=== PATIENT | male | born 1965 | race Caucasian/White ===

== ENCOUNTER 2018-04-25 10:44 | Observation (INO) | payer OTHER ==
[2018-04-25] MEDS: morphine 4 MG/ML VIAL IV ×4 (11:56→22:49)
[2018-04-25] MEDS: ONDANSETRON 4 MG INJ IV (11:56)
[2018-04-25 11:59] LABS: ADD MAN DIFF? NO
[2018-04-25 12:00] LABS: BASOPHIL # 0.1 10^3/ul (0.0-0.1); BASOPHILS % 0.4 % (0.0-2.0); EOSINOPHILS % 0.1 % (0.0-7.0); HEMATOCRIT 45.2 % (42.0-52.0); HEMOGLOBIN 15.8 g/dl (14.0-18.0); LYMPHOCYTES % 8.2 % (15.0-51.0); MEAN CORPUSCULAR HEMOGLOBIN 31.9 pg (29.0-33.0); MEAN CORPUSCULAR VOLUME 91.3 fl (82.0-101.0); MEAN PLATELET VOLUME 9.1 fl (7.4-10.4); MONOCYTE # 0.8 10^3/ul (0.3-0.9); MONOCYTES % 6.7 % (0.0-11.0); NEUTROPHIL # 10.7 10^3/ul (1.6-7.5); NEUTROPHILS % 84.4 % (39.0-77.0); PLATELET COUNT 240 10^3/UL (140-415); RED BLOOD COUNT 4.95 10^6/ul (4.70-6.10); RED CELL DISTRIBUTION WIDTH 12.4 % (11.5-14.5)
[2018-04-25 12:00] LABS: WHITE BLOOD COUNT 12.6 10^3/ul (4.8-10.8)
[2018-04-25 12:10] LABS: ADD UMIC YES; UR ASCORBIC ACID NEGATIVE (NEGATIVE); UR BACTERIA FEW /HPF (NONE SEEN); UR BILIRUBIN (Dip) NEGATIVE (NEGATIVE); UR BLOOD (Dip) 1+ mg/dL (NEGATIVE); UR CLARITY CLEAR (CLEAR); UR COLOR YELLOW (YELLOW); UR GLUCOSE (Dip) NEGATIVE (NEGATIVE); UR KETONES (Dip) 2+ mg/dL (NEGATIVE); UR LEUKOCYTE ESTERASE (Dip) NEGATIVE Leu/ul (NEGATIVE); UR MUCUS FEW /HPF (NONE SEEN); UR NITRITE (Dip) NEGATIVE (NEGATIVE); UR RBC 2 /HPF (0-5); UR SPECIFIC GRAVITY (Dip) 1.021 (1.003-1.030); UR TOTAL PROTEIN (Dip) 1+ mg/dl (NEGATIVE); UR UROBILINOGEN (Dip) NEGATIVE (NEGATIVE); UR WBC 1 /HPF (0-5)
[2018-04-25 12:19] LABS: PARTIAL THROMBOPLASTIN TIME 27.1 Sec (23.0-35.0); PROTIME 13.3 Sec (11.9-14.9)
[2018-04-25 12:21] LABS: ANION GAP 21 (5-13); BLOOD UREA NITROGEN 13 mg/dl (7-20); CALCIUM 9.4 mg/dl (8.4-10.2); CARBON DIOXIDE 24 mmol/L (21-31); CHLORIDE 96 mmol/L (97-110); CREATININE 0.77 mg/dl (0.61-1.24); Estimated GFR > 60 mL/min (>60); GLUCOSE 106 mg/dl (70-220); SODIUM 141 mmol/L (135-144)
[2018-04-25] MEDS ORDERED: ACETAMINOPHEN 325 MG TAB PO (12:30)
[2018-04-25] MEDS ORDERED: ONDANSETRON 4 MG INJ IV (12:30)
[2018-04-25 12:32] LABS: TROPONIN-I < 0.012 ng/ml (0.000-0.120)
[2018-04-25] MEDS ORDERED: GLUCAGON 1 MG INJ IM (14:30)
[2018-04-25] MEDS ORDERED: GLUCOSE GEL 15 GRAM TUBE BUCCAL (14:30)
[2018-04-25] MEDS ORDERED: DEXTROSE 50% 50 ML SYRINGE IV ×2 (14:30)
[2018-04-25] MEDS ORDERED: GLUCOSE GEL 15 GRAM TUBE PO ×2 (14:30)
[2018-04-25 16:24] LABS: SICKLE CELL SCREEN NEGATIVE (NEGATIVE)
[2018-04-25] MEDS: ACCU-CHEK XX ×2 (17:40→20:47)
[2018-04-25] MEDS: INSULIN ASPART [NOVOLOG] 3 ML PEN SC ×2 (17:43→20:37)
[2018-04-25] MEDS: metFORMIN 500 MG TAB PO (17:43)
[2018-04-25 18:04] LABS: AMPHETAMINE/METHAMPHETAMINE Negative (NEGATIVE); BARBITURATES Negative (NEGATIVE); BENZODIAZEPINES Negative (NEGATIVE); CANNABINOIDS Negative (NEGATIVE); COCAINE Negative (NEGATIVE)
[2018-04-25 18:29] LABS: OPIATES Positive (NEGATIVE)
[2018-04-26] MEDS: morphine 4 MG/ML VIAL IV ×2 (05:41→11:08)
[2018-04-26] MEDS: INSULIN ASPART [NOVOLOG] 3 ML PEN SC ×2 (07:50→13:00)
[2018-04-26] MEDS: ACCU-CHEK XX ×2 (08:30→13:00)
[2018-04-26] MEDS: ALLOPURINOL 100 MG TAB PO (08:40)
[2018-04-26] MEDS: metFORMIN 500 MG TAB PO (08:40)
[2018-04-26] MEDS: BENAZEPRIL 40 MG TAB PO (08:41)
[2018-04-26 11:56] LABS: HEMOGLOBIN A1C 5.3 % (0-5.9)
== END 2018-04-26 18:00 | disposition home or self-care (01) ==
LOC: E/R 10:44 → MS1 12:16
DX: N48.39 Other priapism (principal); E11.9 Type 2 diabetes mellitus without complications; R03.0 Elevated blood-pressure reading, without diagnosis of hypertension; M1A.9XX0 Chronic gout, unspecified, without tophus (tophi); Z79.4 Long term (current) use of insulin
CPT/HCPCS: 36415; 80048; 80307; 81001; 82962; 83036; 84484; 85025; 85610; 85660; 85730; 87086; 93005; 96374; 96375; 96376; 99285-25; G0378

== ENCOUNTER 2018-04-29 07:08 | Inpatient (IN) | payer OTHER ==
[2018-04-29] MEDS: morphine 4 MG/ML VIAL IV (07:36)
[2018-04-29] MEDS: ONDANSETRON 4 MG INJ IV (07:36)
[2018-04-29 07:37] LABS: ADD MAN DIFF? NO
[2018-04-29 07:41] LABS: BASOPHIL # 0.1 10^3/ul (0.0-0.1); BASOPHILS % 0.6 % (0.0-2.0); EOSINOPHILS # 0.2 10^3/ul (0.0-0.5); EOSINOPHILS % 1.8 % (0.0-7.0); HEMATOCRIT 45.5 % (42.0-52.0); HEMOGLOBIN 15.4 g/dl (14.0-18.0); LYMPHOCYTES # 1.9 10^3/ul (0.8-2.9); LYMPHOCYTES % 19.3 % (15.0-51.0); MEAN CORPUSCULAR HEMOGLOBIN 31.8 pg (29.0-33.0); MEAN CORPUSCULAR HGB CONC 33.8 g/dl (32.0-37.0); MEAN CORPUSCULAR VOLUME 93.8 fl (82.0-101.0); MEAN PLATELET VOLUME 9.4 fl (7.4-10.4); MONOCYTE # 1.1 10^3/ul (0.3-0.9); MONOCYTES % 10.9 % (0.0-11.0); NEUTROPHIL # 6.5 10^3/ul (1.6-7.5); PLATELET COUNT 218 10^3/UL (140-415); RED BLOOD COUNT 4.85 10^6/ul (4.70-6.10); RED CELL DISTRIBUTION WIDTH 12.3 % (11.5-14.5)
[2018-04-29 07:41] LABS: WHITE BLOOD COUNT 9.7 10^3/ul (4.8-10.8)
[2018-04-29 07:58] LABS: ANION GAP 5 (5-13); BLOOD UREA NITROGEN 11 mg/dl (7-20); CALCIUM 9.5 mg/dl (8.4-10.2); CARBON DIOXIDE 31 mmol/L (21-31); CHLORIDE 106 mmol/L (97-110); CREATININE 0.88 mg/dl (0.61-1.24); Estimated GFR > 60 mL/min (>60); GLUCOSE 170 mg/dl (70-220); POTASSIUM 4.2 mmol/L (3.5-5.1); SODIUM 142 mmol/L (135-144)
[2018-04-29 08:00] LABS: INR 0.95; PROTIME 12.8 Sec (11.9-14.9)
[2018-04-29 08:01] LABS: PARTIAL THROMBOPLASTIN TIME 28.8 Sec (23.0-35.0)
[2018-04-29] MEDS ORDERED: LIDOCAINE 1% (MDV) 20 ML INJ (08:20)
[2018-04-29] MEDS ORDERED: HYDROmorphONE 1 MG/ML SYG (08:22)
[2018-04-29] MEDS: HYDROmorphONE 2 MG/ML SYG IV (08:24)
[2018-04-29] MEDS: PHENYLephrine 40 MG in DEXTROSE 5% 246 ML IV (08:34)
[2018-04-29] MEDS: LIDOCAINE 1% (MPF) 30 ML INJ INJ (08:35)
[2018-04-29] MEDS ORDERED: CEFTRIAXONE 1 GM/50 ML (PMX) 50 ML IVPB (08:49)
[2018-04-29] MEDS: CEFTRIAXONE 1 GM/50 ML (PMX) 50 ML IVPB (09:05)
[2018-04-29] MEDS ORDERED: ACETAMINOPHEN 325 MG TAB PO (09:30)
[2018-04-29] MEDS ORDERED: ONDANSETRON 4 MG INJ IV (09:30)
[2018-04-29] MEDS: ACCU-CHEK XX ×3 (11:30→21:02)
[2018-04-29] MEDS ORDERED: GLUCAGON 1 MG INJ IM (11:30)
[2018-04-29] MEDS ORDERED: GLUCOSE GEL 15 GRAM TUBE BUCCAL (11:30)
[2018-04-29] MEDS ORDERED: GLUCOSE GEL 15 GRAM TUBE PO ×2 (11:30)
[2018-04-29] MEDS ORDERED: DEXTROSE 50% 50 ML SYRINGE IV ×2 (11:30)
[2018-04-29] MEDS: DOCUSATE SODIUM 250 MG CAP PO (11:50)
[2018-04-29] MEDS: IBUPROFEN 400 MG TAB PO ×3 (11:50→23:42)
[2018-04-29] MEDS: ALLOPURINOL 100 MG TAB PO (11:50)
[2018-04-29] MEDS: NICOTINE (21 MG/24 HR) PATCH TRANSDERM (11:51)
[2018-04-29] MEDS: HYDROCODONE/APAP (7.5/325) TAB PO ×2 (14:38→22:17)
[2018-04-29] MEDS: metFORMIN (XR) 500 MG TAB PO (14:41)
[2018-04-29] MEDS: BENAZEPRIL 40 MG TAB PO (15:11)
[2018-04-29] MEDS: ZOLPIDEM 5 MG TAB PO (20:55)
[2018-04-30] MEDS: ZOLPIDEM 5 MG TAB PO (02:56)
[2018-04-30] MEDS: IBUPROFEN 400 MG TAB PO (06:37)
[2018-04-30] MEDS: ACCU-CHEK XX ×2 (07:59→12:06)
[2018-04-30] MEDS: BENAZEPRIL 40 MG TAB PO (08:50)
[2018-04-30] MEDS: metFORMIN (XR) 500 MG TAB PO (08:50)
[2018-04-30] MEDS: ALLOPURINOL 100 MG TAB PO (08:51)
[2018-04-30] MEDS: NICOTINE (21 MG/24 HR) PATCH TRANSDERM (08:51)
[2018-04-30] MEDS: DOCUSATE SODIUM 250 MG CAP PO (08:51)
[2018-04-30] MEDS: CEFTRIAXONE 1 GM/50 ML (PMX) 50 ML IVPB (09:59)
== END 2018-04-30 16:10 | disposition home or self-care (01) | DRG 710 ==
LOC: E/R 07:08 → 5EC 09:24
PROC: 0V9 Male Reproductive System, Drainage (ICD-10-PCS; principal; 2018-04-29)
DX: N48.30 Priapism, unspecified (principal); I10 Essential (primary) hypertension; E11.9 Type 2 diabetes mellitus without complications; M1A.9XX0 Chronic gout, unspecified, without tophus (tophi); F17.210 Nicotine dependence, cigarettes, uncomplicated; Z79.84 Long term (current) use of oral hypoglycemic drugs
CPT/HCPCS: 36415; 80048; 82962; 85025; 85610; 85730; 87086; 96365; 96375; 99217; 99285-25

== ENCOUNTER 2018-10-03 18:18 | Emergency (ER) | payer OTHER ==
[2018-10-03 20:14] LABS: ADD MAN DIFF? NO
[2018-10-03 20:17] LABS: BASOPHIL # 0.1 10^3/ul (0.0-0.1); BASOPHILS % 0.9 % (0.0-2.0); EOSINOPHILS # 0.2 10^3/ul (0.0-0.5); EOSINOPHILS % 2.8 % (0.0-7.0); HEMATOCRIT 45.9 % (42.0-52.0); HEMOGLOBIN 16.8 g/dl (14.0-18.0); LYMPHOCYTES % 38.3 % (15.0-51.0); MEAN CORPUSCULAR HEMOGLOBIN 31.6 pg (29.0-33.0); MEAN CORPUSCULAR HGB CONC 36.6 g/dl (32.0-37.0); MEAN CORPUSCULAR VOLUME 86.4 fl (82.0-101.0); MEAN PLATELET VOLUME 8.8 fl (7.4-10.4); MONOCYTES % 12.9 % (0.0-11.0); NEUTROPHIL # 3.6 10^3/ul (1.6-7.5); NEUTROPHILS % 44.7 % (39.0-77.0); PLATELET COUNT 235 10^3/UL (140-415); RED BLOOD COUNT 5.31 10^6/ul (4.70-6.10); RED CELL DISTRIBUTION WIDTH 11.9 % (11.5-14.5)
[2018-10-03 20:17] LABS: WHITE BLOOD COUNT 7.9 10^3/ul (4.8-10.8)
[2018-10-03 20:43] LABS: ALANINE AMINOTRANSFERASE 35 IU/L (13-69); ALBUMIN 4.5 g/dl (3.3-4.9); ALBUMIN/GLOBULIN RATIO 1.07; ALKALINE PHOSPHATASE 102 IU/L (42-121); ANION GAP 14 (5-13); ASPARTATE AMINO TRANSFERASE 58 IU/L (15-46); BILIRUBIN,INDIRECT 0.4 mg/dl (0-1.1); BILIRUBIN,TOTAL 0.4 mg/dl (0.2-1.3); BLOOD UREA NITROGEN 10 mg/dl (7-20); CALCIUM 9.2 mg/dl (8.4-10.2); CARBON DIOXIDE 24 mmol/L (21-31); CHLORIDE 108 mmol/L (97-110); CREATININE 0.94 mg/dl (0.61-1.24); Estimated GFR > 60 mL/min (>60); GLUCOSE 95 mg/dl (70-220); POTASSIUM 4.3 mmol/L (3.5-5.1); SODIUM 146 mmol/L (135-144); TOTAL PROTEIN 8.7 g/dl (6.1-8.1)
[2018-10-03 20:54] LABS: TROPONIN-I < 0.012 ng/ml (0.000-0.120)
== END 2018-10-03 21:30 | disposition home or self-care (01) ==
LOC: E/R 18:18
DX: R07.9 Chest pain, unspecified (principal); I10 Essential (primary) hypertension; F17.210 Nicotine dependence, cigarettes, uncomplicated
CPT/HCPCS: 71045; 80053; 84484; 85025; 93005; 99285-25

== ENCOUNTER 2018-10-04 13:59 | Emergency (ER) | payer SELFPAY, OTHER | END 2018-10-04 16:40 | disposition left against medical advice (07) | LOC: E/R 16:40 | DX: Z53.21 Procedure and treatment not carried out due to patient leaving prior to being seen by health care provider (principal) | CPT/HCPCS: 93005 ==